=== PATIENT | female | born 1955 | race Caucasian/White ===

== ENCOUNTER → 2017-09-10 12:46 | Day surgery (SDC) | payer OTHER, SELFPAY ==
[2017-09-10] VITALS (13 sets, daily range): BP systolic 102–154; BP diastolic 66–90; PULSE 76–97; RESP 14–20; TEMP 36.1–36.9; O2SAT 90–98; BMI 30.7
--- NOTE | 2017-09-10 | DI.CT.S_ITS ---
PROCEDURE: CT HEAD/BRAIN WO CON INDICATIONS: Unwitnessed fall s/p procedure TECHNIQUE: Noncontrast 4.5 mm thick angled axial sections acquired from the foramen magnum to the vertex, with coronal and sagittal reformats. For radiation dose reduction, the following was used: automated exposure control, adjustment of mA and/or kV according to patient size. COMPARISON: None. FINDINGS: Image quality: Excellent. CSF spaces: Basal cisterns are patent. No extra-axial fluid collections. Ventricles are normal in size and shape. Brain: No midline shift. No intracranial masses or hemorrhage. Erickson-white matter interface is normal. Skull and face: Calvarium and visualized facial bones are intact, without suspicious lesions. Sinuses: Visualized sinuses and mastoids are clear. IMPRESSION: No acute intracranial disease process. Dictated by: Inez Phoenix MD, PhD on 09/10/2017 at 16:26 Approved by: Inez Phoenix MD, PhD on 09/10/2017 at 16:29
[2017-09-10] MEDS: SODIUM CHLORIDE 0.9% 1,000 ML 200 ML IV (14:05)
--- NOTE | 2017-09-10 14:28 | PM.HP.1 ---
History of Present Illness Chief complaint: [id number] Narrative: Carol Montaño is a 61 year old female Her last colonoscopy was 5 years ago. She had polyps removed. She has a grandmother it colon cancer. She is here for screening exam. She is asymptomatic. [facility] Surgical History History of third molar tooth extraction History of tonsillectomy Status post arthroscopy Status post arthroscopy Status post arthroscopy Family History Father Age: 85 Cancer Stroke Mother Age: 84 Heart disease Hypertension High cholesterol Grandfather Heart disease Diabetes mellitus Hypertension Social History household members: none Meds Generic Name Dose Route Start Last Admin Trade Name Freq PRN Reason Stop Dose Admin Flumazenil 0.2 mg 09/09/17 21:23 Romazicon IV PRN PRN Benzodiazepine Reversal Sodium Chloride 1,000 mls @ 200 mls/hr 09/09/17 21:30 09/10/17 14:05 Normal Saline 0.9% IV 200 mls/hr CONT [place] Administration Naloxone HCl 0.2 mg 09/09/17 21:23 Narcan IV Q2MIN PRN Opiate Reversal Allergies Allergy/AdvReac Type Severity Reaction Status Date / Time codeine [CODEINE] Allergy Mild HYPERACTIVI Verified 09/10/17 13:52 TY Review of Systems Review of Systems All systems reviewed & are unremarkable except as noted in HPI and below ENT Comments: Postnasal drip causing an intermittent cough. Musculoskeletal Comments: Chronic back pain secondary to degenerative disease and bulging disc Exam Vital Signs (past 8 hours): Vital Signs - 8 hr 09/10/17 13:15 Temperature 97.5 F L Pulse Rate 84 Respiratory Rate 16 Blood Pressure 127/77 H Pulse Oximetry 98 Pulse Oximetry 98 Oxygen Delivery Method Room Air Narrative Exam Narrative: Co operative no apparent distress lungs are clear to auscultation no rales or rhonchi heart regular rate and rhythm without murmur or gallop. Abdomen is protuberant soft nontender without mass. Patient is alert and oriented x3. Assessment & Plan Plan: Plan: I have discussed the procedure and the rationale with the patient including risks of bleeding, perforation which would necessitate a major operation, failure to find remove all lesions and the potential to tattoo. They appeared to understand and wished to proceed.
--- NOTE | 2017-09-10 14:32 | P.HP_ITS ---
History of Present Illness Chief complaint: [id number] Narrative: Carol Montaño is a 61 year old female Her last colonoscopy was 5 years ago. She had polyps removed. She has a grandmother it colon cancer. She is here for screening exam. She is asymptomatic. [facility] Surgical History History of third molar tooth extraction History of tonsillectomy Status post arthroscopy Status post arthroscopy Status post arthroscopy Family History Father Age: 85 Cancer Stroke Mother Age: 84 Heart disease Hypertension High cholesterol Grandfather Heart disease Diabetes mellitus Hypertension Social History household members: none Meds Generic Name Dose Route Start Last Admin Trade Name Freq PRN Reason Stop Dose Admin Flumazenil 0.2 mg 09/09/17 21:23 Romazicon IV PRN PRN Benzodiazepine Reversal Sodium Chloride 1,000 mls @ 200 mls/hr 09/09/17 21:30 09/10/17 14:05 Normal Saline 0.9% IV 200 mls/hr CONT [place] Administration Naloxone HCl 0.2 mg 09/09/17 21:23 Narcan IV Q2MIN PRN Opiate Reversal Allergies Allergy/AdvReac Type Severity Reaction Status Date / Time codeine [CODEINE] Allergy Mild HYPERACTIVI Verified 09/10/17 13:52 TY Review of Systems Review of Systems All systems reviewed & are unremarkable except as noted in HPI and below ENT Comments: Postnasal drip causing an intermittent cough. Musculoskeletal Comments: Chronic back pain secondary to degenerative disease and bulging disc Exam Vital Signs (past 8 hours): Vital Signs - 8 hr 3 09/10/17 13:15 Temperature 97.5 F L Pulse Rate 84 Respiratory Rate 16 Blood Pressure 127/77 H Pulse Oximetry 98 Pulse Oximetry 98 Oxygen Delivery Method Room Air Narrative Exam Narrative: Co operative no apparent distress lungs are clear to auscultation no rales or rhonchi heart regular rate and rhythm without murmur or gallop. Abdomen is protuberant soft nontender without mass. Patient is alert and oriented x3. Assessment & Plan Plan: Plan: I have discussed the procedure and the rationale with the patient including risks of bleeding, perforation which would necessitate a major operation, failure to find remove all lesions and the potential to tattoo. They appeared to understand and wished to proceed.
--- NOTE | 2017-09-10 14:32 | PM.PREOP ---
Pre-operative Note Interval Note Pre-op Check: History & Physical exam performed today H&P completed within 30 days and has changed as indicated here:: None ASA Class (for procedural sedation): I
--- NOTE | 2017-09-10 15:09 | PM.OP.ENDO ---
Operative Date/Time/Diagnoses - Date of procedure: 09/10/17 Time of procedure: 15:09 Pre-op diagnosis: Screening exam. Last exam 5 years ago. History of polyps. Post-op diagnosis: other (Normal examination.) Procedure & Clinicians Study performed: Colonoscopy Same procedure as scheduled: Yes Indications: Screening. [facility] AP protocol was followed Surgeon: Samuel Rogers Procedure Notes SCOAP/Timeout: Performed Procedure in detail: The patient was placed in the left lateral decubitus position and underwent IV sedation directed by the surgeon consisting of fentanyl and Versed. Digital exam was unremarkable. The scope was inserted and advanced through the rectum into the sigmoid, descending, transverse, and ascending colon. No lesions were seen.. The cecum was reached identified by the ileocecal valve and the appendiceal opening. The ileocecal valve was[normal in appearance] . The scope was gradually brought out. No Polyps were found . The scope ultimately was retroflexed in the rectum. The appearance was normal. The scope was removed and the patient tolerated the procedure well Scope withdrawal time: Almost 9 min Sedation minutes: 23 Findings: other findings (Normal exam. Somewhat tortuous.) Specimen(s): none sent Complications: none Recommendations: Colonscopy in 5 years Plan for aftercare: Follow-up is needed Follow up: as needed Disposition: PACU
[2017-09-10] MEDS: fentaNYL 250 MCG/5 ML INJ IV (15:10)
[2017-09-10] MEDS: MIDAZOLAM 5 MG/5 ML VIAL IV (15:11)
--- NOTE | 2017-09-10 15:14 | P.OP.ENDO_ITS ---
Operative Date/Time/Diagnoses - Date of procedure: 09/10/17 Time of procedure: 15:09 Pre-op diagnosis: Screening exam. Last exam 5 years ago. History of polyps. Post-op diagnosis: other (Normal examination.) Procedure & Clinicians Study performed: Colonoscopy Same procedure as scheduled: Yes Indications: Screening. [facility] AP protocol was followed Surgeon: Samuel Rogers Procedure Notes SCOAP/Timeout: Performed Procedure in detail: The patient was placed in the left lateral decubitus position and underwent IV sedation directed by the surgeon consisting of fentanyl and Versed. Digital exam was unremarkable. The scope was inserted and advanced through the rectum into the sigmoid, descending, transverse, and ascending colon. No lesions were seen.. The cecum was reached identified by the ileocecal valve and the appendiceal opening. The ileocecal valve was[ normal in appearance] . The scope was gradually brought out. No Polyps were found . The scope ultimately was retroflexed in the rectum. The appearance was normal. The scope was removed and the patient tolerated the procedure well Scope withdrawal time: Almost 9 min Sedation minutes: 23 Findings: other findings (Normal exam. Somewhat tortuous.) Specimen(s): none sent Complications: none Recommendations: Colonscopy in 5 years Plan for aftercare: Follow-up is needed Follow up: as needed Disposition: PACU
--- NOTE | 2017-09-10 16:36 | SUR.PHASEII ---
patients valuables were sent with friend, leno. patient was taken to CAT scan for her recent fall and will be held till it is read.
[2017-09-10] MEDS: ONDANSETRON 4 MG/2 ML INJ IV (16:50)
--- NOTE | 2017-09-10 16:53 | SUR.PHASEII ---
pt had some nausea but after zofran states she is feeling a little better. pt resting quietly and vital signs are within normal range. pt states her pain and her nausea is a little better.
== END | disposition home or self-care (01) ==
PROVIDERS: Specialist; Family Provider Family Medicine; PCP Family Medicine; Visit Provider Surgery
PROC: 0DJD8ZZ Inspection of Lower Intestinal Tract, Via Natural or Artificial Opening Endoscopic (ICD-10-PCS; CPT 45378; principal; 2017-09-10 13:45)
DX: Z12.11 Encounter for screening for malignant neoplasm of colon (principal); Z86.010 Personal history of colon polyps; Z80.0 Family history of malignant neoplasm of digestive organs
CPT/HCPCS: 45378; 70450; 99152; 99153; J2250; J2405; J3010